=== PATIENT | male | born 1970 | race Caucasian/White ===

== ENCOUNTER 2017-04-30 00:55 | Emergency (ER) | payer SELFPAY ==
[2017-04-30] MEDS ORDERED: traMADol HCl 50 MG TAB ONE (01:19)
--- NOTE | 2017-04-30 07:46 | RAD ---
THREE VIEWS OF THE RIGHT SHOULDER: DATE: 04/30/17. COMPARISON: 11/24/12. HISTORY: Right-sided shoulder pain, fall, recent injury. FINDINGS: There is no widening of the acromioclavicular or coracoclavicular interspace. There is no displaced fracture or evidence of dislocation. IMPRESSION: No acute osseous abnormality. POS: [facility]
== END 2017-04-30 02:11 | disposition home or self-care (01) ==
LOC: ERS 00:55
DX: M25.511 Pain in right shoulder (principal); F41.9 Anxiety disorder, unspecified; F17.210 Nicotine dependence, cigarettes, uncomplicated; Z71.6 Tobacco abuse counseling; Z79.899 Other long term (current) drug therapy; W14.XXXA Fall from tree, initial encounter
CPT/HCPCS: 99406

== ENCOUNTER 2020-06-23 09:44 | Emergency (ER) | payer SELFPAY ==
--- NOTE | 2020-06-23 10:31 | RAD ---
XR Shoulder Lt 3 View STANDARD: 06/23/2020 10:00 AM CLINICAL INDICATION: Left shoulder pain. COMPARISON: January 25, 2019 FINDINGS: Bones: No acute fracture. Glenohumeral joint: Normal alignment. 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 Visualized lung: Clear. Soft tissues: There is stable heterotopic ossification seen posterior to the left humeral head. IMPRESSION: Stable exam. No acute osseous abnormality.
--- NOTE | 2020-06-23 10:32 | RAD ---
XR Hand Rt 3 View STANDARD: 06/23/2020 10:00 AM CLINICAL INDICATION: Right hand pain COMPARISON: None. FINDINGS: Bones: There is stable subchondral cystlike abnormalities involving the lunate. There is stable heal ed deformity involving the distal tuft of the right index finger. Joints: There is scattered osteoarthrosis involving the right hand particularly IP joints. Soft Tissue: Soft tissues are normal appearing. IMPRESSION: No acute osseous abnormality..
--- NOTE | 2020-06-23 10:35 | RAD ---
Left elbow 4 views HISTORY: Injury. FINDINGS: Radiocapitellar alignment is maintained. Moderate osteophytosis throughout the joint space. No acute fracture, dislocation, or fluid distention of the joint capsule. IMPRESSION : No abnormalities are demonstrated.
[2020-06-23] MEDS ORDERED: Acetaminophen 500 MG TAB ONE (11:12)
[2020-06-23] MEDS ORDERED: Bacitracin 1 PK ONE (11:12)
== END 2020-06-23 11:32 | disposition home or self-care (01) ==
LOC: ERS 09:44
DX: S50.312A Abrasion of left elbow, initial encounter (principal); S60.417A Abrasion of left little finger, initial encounter; M25.531 Pain in right wrist; J44.9 Chronic obstructive pulmonary disease, unspecified; F17.200 Nicotine dependence, unspecified, uncomplicated; V03.10XA Pedestrian on foot injured in collision with car, pick-up truck or van in traffic accident, initial encounter; Y92.521 Bus station as the place of occurrence of the external cause

== ENCOUNTER 2020-07-10 10:38 | Emergency (ER) | payer SELFPAY ==
[2020-07-10] MEDS ORDERED: Ibuprofen 800 MG TAB ONE (11:05)
== END 2020-07-10 11:15 | disposition home or self-care (01) ==
LOC: ERS 10:38
DX: S29.011A Strain of muscle and tendon of front wall of thorax, initial encounter (principal); J44.9 Chronic obstructive pulmonary disease, unspecified; F17.200 Nicotine dependence, unspecified, uncomplicated; X58.XXXA Exposure to other specified factors, initial encounter
CPT/HCPCS: 71045

== ENCOUNTER 2020-07-11 22:02 | Inpatient (IN) | payer SELFPAY ==
[~2020-07-11 22:02] MED LIST: Iopamidol 370 76% 100 ML VIAL ONE
[2020-07-11 22:27] LABS: #Basophils 0.2 thou/uL (0.0-0.2); #Eosinphils 0.3 thou/uL (0.0-0.7); #Lymphocytes 3.6 thou/uL (1.20-3.40); #Monocytes 1.2 thou/uL (0.11-0.59); #Neutrophils 14.3 thou/uL (1.40-6.50); %Basophils 0.9 % (0.0-1.0); %Eosinophils 1.5 % (0.0-10.0); %Lymphocytes 18.6 % (21.0-51.0); %Monocytes 6.2 % (0.0-10.0); %Neutrophils 72.9 % (42.0-75.0); Hemoglobin 15.3 g/dL (14.0-18.0); Mean Corpuscular Hemoglobin 27.9 pg (27.0-31.0); Mean Corpuscular Volume 87.2 fL (78.0-98.0); Mean Platelet Volume 7.5 fL (7.4-10.4); Platelet Count 358 thou/uL (130-400); RBC Distribution Width 11.6 % (11.5-14.5); Red Blood Cell (RBC) Count 5.47 mill/uL (4.70-6.10); White Blood Cell (WBC) Count 19.6 thou/uL (4.8-10.8)
[2020-07-11] MEDS ORDERED: Mag-Al 1200 mg/1200 mg/30 ML UDCUP ONE (22:39)
[2020-07-11] MEDS ORDERED: Lidocaine Viscous Sol 2% 15 ml UD Cup ONE (22:39)
[2020-07-11] MEDS ORDERED: Ondansetron PF 4 MG/2 ML Vial ONE (22:44)
[2020-07-11 22:48] LABS: ALT (SGPT) 15 U/L (8-55); AST (SGOT) 14 U/L (5-34); Albumin 4.9 g/dL (3.5-5.0); Alkaline Phosphatase 77 U/L (40-110); Anion Gap 14 mmol/L (10-20); BUN (Urea Nitrogen) 14 mg/dL (8.9-20.6); Bilirubin, Total 0.3 mg/dL (0.2-1.2); Calc. Creatinine Clearance 0 mL/min (70-130); Carbon Dioxide 28 mmol/L (22-29); Chloride 101 mmol/L (98-107); Globulin 3.6 g/dL (2.4-3.5); Glucose 108 mg/dL (70-105); Lipase 17 U/L (8-78); Potassium 4.3 mmol/L (3.5-5.1); Protein, Total 8.5 g/dL (6.0-8.3); Sodium 139 mmol/L (136-145)
[2020-07-11] MEDS ORDERED: Morphine 4 MG/ML VIAL ONE (23:59)
[2020-07-12] MEDS ORDERED: Ondansetron PF 4 MG/2 ML Vial ONE
[2020-07-12] MEDS ORDERED: Morphine 4 MG/ML VIAL ONE (00:54)
[2020-07-12 02:28] VITALS: BMI 23.6
[2020-07-12] MEDS ORDERED: Ondansetron ODT 4 MG TAB SL PRN (02:30)
[2020-07-12] MEDS: Sodium Chloride 0.9% 1,000 ML IV SCH ×3 (02:49→18:15)
[2020-07-12] MEDS ORDERED: Fentanyl 100 MCG/2 ML VIAL SLOW IVP PRN (03:17)
[2020-07-12] MEDS: Ondansetron PF 4 MG/2 ML Vial IVP PRN ×3 (05:48→19:20)
[2020-07-12 06:22] LABS: Bilirubin Negative (Negative); Blood, Urine Negative (Negative); Clarity Clear (Clear); Glucose, Urine (Dipstick) Normal (Negative); Ketone, Urine Negative (Negative); Leukocyte Negative Leu/uL (Negative); Nitrite Negative (Negative); Protein, Urine (Dipstick) 10 mg/dL (Neg-Trace); Urobilinogen Normal mg/dL (Less than 2)
[2020-07-12 06:26] LABS: Specific Gravity, Urine 1.064 (1.002-1.036)
[2020-07-12] MEDS ORDERED: Acetaminophen 325 MG TAB PO PRN (06:35)
[2020-07-12 07:47] LABS: Bacteria/HPF None Seen HPF (None Seen); Bilirubin Negative (Negative); Blood, Urine Negative (Negative); Clarity Clear (Clear); Glucose, Urine (Dipstick) Normal (Negative); Ketone, Urine Negative (Negative); Leukocyte Negative Leu/uL (Negative); Nitrite Negative (Negative); Protein, Urine (Dipstick) 10 mg/dL (Neg-Trace); Squamous Epithelial None Seen HPF (0-3); Urobilinogen Normal mg/dL (Less than 2); WBC/HPF 0-3 HPF (0-3); pH, Urine 8.5 (5.0-9.0)
[2020-07-12 07:49] LABS: Specific Gravity, Urine 1.063 (1.002-1.036)
[2020-07-12 07:51] LABS: Urine Culture Reflex No No
[2020-07-12] MEDS: Morphine 4 MG/ML VIAL SLOW IVP PRN (08:00)
[2020-07-12 11:32] LABS: #Basophils 0.1 thou/uL (0.0-0.2); #Eosinphils 0.2 thou/uL (0.0-0.7); #Lymphocytes 1.6 thou/uL (1.20-3.40); #Monocytes 1.3 thou/uL (0.11-0.59); #Neutrophils 11.1 thou/uL (1.40-6.50); %Basophils 0.7 % (0.0-1.0); %Eosinophils 1.1 % (0.0-10.0); %Lymphocytes 11.4 % (21.0-51.0); %Neutrophils 77.8 % (42.0-75.0); Hemoglobin 15.8 g/dL (14.0-18.0); Mean Corpuscular HGB CONC 32.8 g/dL (32.0-36.0); Mean Corpuscular Hemoglobin 28.7 pg (27.0-31.0); Mean Corpuscular Volume 87.6 fL (78.0-98.0); Mean Platelet Volume 7.8 fL (7.4-10.4); Platelet Count 306 thou/uL (130-400); RBC Distribution Width 11.7 % (11.5-14.5); Red Blood Cell (RBC) Count 5.49 mill/uL (4.70-6.10); White Blood Cell (WBC) Count 14.2 thou/uL (4.8-10.8)
[2020-07-12 12:00] LABS: Anion Gap 16 mmol/L (10-20); BUN (Urea Nitrogen) 12 mg/dL (8.9-20.6); Calc. Creatinine Clearance 103 mL/min (70-130); Carbon Dioxide 20 mmol/L (22-29); Chloride 106 mmol/L (98-107); Glucose 112 mg/dL (70-105); Potassium 4.3 mmol/L (3.5-5.1); Sodium 138 mmol/L (136-145)
[2020-07-12] MEDS: Morphine 10 MG/ML VIAL SLOW IVP PRN ×4 (12:00→20:36)
[2020-07-12] MEDS ORDERED: MD-Gastroview 120 ML BOT ONE (14:25)
[2020-07-12] MEDS: Pantoprazole 40 MG VIAL IVP SCH (14:33)
[2020-07-12] MEDS: Lorazepam 2 MG/ML VIAL SLOW IVP PRN ×2 (14:44→21:32)
[2020-07-12 17:09] LABS: SARS-CoV-2 PCR by NAA Not Detected (NotDetected)
[2020-07-13] MEDS: Sodium Chloride 0.9% 1,000 ML IV SCH ×4 (00:20→21:52)
[2020-07-13] MEDS: Morphine 10 MG/ML VIAL SLOW IVP PRN ×2 (00:20→03:34)
[2020-07-13] MEDS: Ondansetron PF 4 MG/2 ML Vial IVP PRN (03:00)
[2020-07-13] MEDS: Lorazepam 2 MG/ML VIAL SLOW IVP PRN (05:32)
[2020-07-13 06:18] LABS: #Basophils 0.1 thou/uL (0.0-0.2); #Eosinphils 0.2 thou/uL (0.0-0.7); #Lymphocytes 2.3 thou/uL (1.20-3.40); #Monocytes 1.1 thou/uL (0.11-0.59); #Neutrophils 5.6 thou/uL (1.40-6.50); %Basophils 0.7 % (0.0-1.0); %Eosinophils 2.1 % (0.0-10.0); %Lymphocytes 25.3 % (21.0-51.0); %Monocytes 11.8 % (0.0-10.0); %Neutrophils 60.2 % (42.0-75.0); Mean Corpuscular HGB CONC 34.3 g/dL (32.0-36.0); Mean Corpuscular Hemoglobin 30.3 pg (27.0-31.0); Mean Corpuscular Volume 88.4 fL (78.0-98.0); Mean Platelet Volume 7.9 fL (7.4-10.4); Platelet Count 262 thou/uL (130-400); RBC Distribution Width 11.5 % (11.5-14.5); White Blood Cell (WBC) Count 9.3 thou/uL (4.8-10.8)
[2020-07-13 06:19] LABS: Anion Gap 10 mmol/L (10-20); BUN (Urea Nitrogen) 15 mg/dL (8.9-20.6); Calc. Creatinine Clearance 113 mL/min (70-130); Calcium 8.6 mg/dL (7.8-10.44); Carbon Dioxide 25 mmol/L (22-29); Chloride 107 mmol/L (98-107); Glucose 95 mg/dL (70-105); Potassium 3.8 mmol/L (3.5-5.1); Sodium 138 mmol/L (136-145)
[2020-07-13] MEDS ORDERED: Lorazepam 2 MG/ML VIAL SLOW IVP SCH (08:15)
[2020-07-13] MEDS ORDERED: Ondansetron ODT 8 MG TAB PO PRN (12:16)
[2020-07-13] MEDS: Ondansetron ODT 4 MG TAB PO PRN (12:21)
[2020-07-13] MEDS ORDERED: Diazepam 5 MG TAB PO SCH (12:30)
[2020-07-13] MEDS: Pantoprazole 40 MG VIAL IVP SCH (12:39)
[2020-07-13] MEDS ORDERED: HYDROcodone/Acetaminophen 5/325 mg Tablet PO PRN (16:51)
[2020-07-13] MEDS: Diazepam 5 MG TAB PO SCH (21:51)
[2020-07-13] MEDS ORDERED: Lorazepam 0.5 MG TAB PO SCH (22:15)
[2020-07-14 07:21] LABS: Anion Gap 11 mmol/L (10-20); BUN (Urea Nitrogen) 7 mg/dL (8.9-20.6); Calc. Creatinine Clearance 105 mL/min (70-130); Calcium 8.8 mg/dL (7.8-10.44); Carbon Dioxide 27 mmol/L (22-29); Chloride 105 mmol/L (98-107); Glucose 95 mg/dL (70-105); Potassium 3.7 mmol/L (3.5-5.1); Sodium 139 mmol/L (136-145)
[2020-07-14 07:27] LABS: #Basophils 0.1 thou/uL (0.0-0.2); #Eosinphils 0.3 thou/uL (0.0-0.7); #Lymphocytes 2.8 thou/uL (1.20-3.40); #Monocytes 0.8 thou/uL (0.11-0.59); #Neutrophils 3.5 thou/uL (1.40-6.50); %Basophils 0.7 % (0.0-1.0); %Eosinophils 4.2 % (0.0-10.0); %Lymphocytes 37.3 % (21.0-51.0); %Monocytes 10.7 % (0.0-10.0); %Neutrophils 47.1 % (42.0-75.0); Hemoglobin 12.3 g/dL (14.0-18.0); Mean Corpuscular HGB CONC 32.8 g/dL (32.0-36.0); Mean Corpuscular Hemoglobin 28.9 pg (27.0-31.0); Mean Corpuscular Volume 88.1 fL (78.0-98.0); Platelet Count 248 thou/uL (130-400); RBC Distribution Width 11.5 % (11.5-14.5); Red Blood Cell (RBC) Count 4.27 mill/uL (4.70-6.10); White Blood Cell (WBC) Count 7.5 thou/uL (4.8-10.8)
[2020-07-14] MEDS: Sodium Chloride 0.9% 1,000 ML IV SCH ×2 (08:54→09:50)
[2020-07-14] MEDS: Diazepam 5 MG TAB PO SCH (09:59)
[2020-07-14] MEDS: Ondansetron ODT 4 MG TAB PO PRN (10:06)
[2020-07-14] MEDS: Morphine 4 MG/ML VIAL SLOW IVP PRN (11:32)
[2020-07-14] MEDS: Lorazepam 2 MG/ML VIAL SLOW IVP PRN (12:57)
[2020-07-14] MEDS ORDERED: metroNIDAZOLE 500 MG in Premix Bag 1 BAG IVPB SCH (13:45)
[2020-07-14] MEDS ORDERED: Iopamidol-370 76% 500 ML 1 ML ONE (13:57)
[2020-07-14] MEDS ORDERED: Levofloxacin 500 mg/D5W 100 ml Premix Bag ONE (15:20)
[2020-07-14] MEDS: Pantoprazole 40 MG VIAL IVP SCH (15:30)
[2020-07-14] MEDS ORDERED: Fentanyl 250 MCG/5 ML VIAL ONE (16:58)
[2020-07-14] MEDS ORDERED: Dexamethasone 20 MG/5 ML VIAL ONE (17:17)
[2020-07-14] MEDS ORDERED: Lidocaine 1% PF 5 ML VIAL ONE (17:17)
[2020-07-14] MEDS ORDERED: Rocuronium Bromide 10 MG/ML (10ML VIAL) ONE (17:17)
[2020-07-14] MEDS ORDERED: PROPOFOL 200 MG/20 ML VIAL ONE (17:17)
[2020-07-14] MEDS ORDERED: Glycopyrrolate 0.2 MG/ML 5 ML SYRINGE ONE ×2 (17:17→19:09)
[2020-07-14] MEDS ORDERED: Ondansetron PF 4 MG/2 ML Vial ONE (17:17)
[2020-07-14] MEDS ORDERED: Fentanyl 100 MCG/2 ML VIAL ONE ×3 (18:43→19:46)
[2020-07-14] MEDS ORDERED: diphenhydrAMINE 50 MG/ML VIAL IVP PRN (19:18)
[2020-07-14] MEDS ORDERED: Naloxone HCl 0.4 mg/ml Vial IV PRN (19:18)
[2020-07-14] MEDS ORDERED: diphenhydrAMINE 25 MG CAP PO PRN (19:18)
[2020-07-14] MEDS ORDERED: Promethazine HCl 25 MG/ML VIAL IM PRN (19:18)
[2020-07-14] MEDS ORDERED: Zolpidem Tartrate 5 MG TAB PO PRN (19:18)
[2020-07-14] MEDS ORDERED: Ondansetron PF 4 MG/2 ML Vial IVP PRN (19:18)
[2020-07-14] MEDS ORDERED: diphenhydrAMINE 50 MG/ML VIAL IM PRN (19:18)
[2020-07-14] MEDS ORDERED: HYDROmorphone 10 mg/100 ml CADD IVPB PRN (19:18)
[2020-07-14] MEDS ORDERED: HYDROmorphone 0.5 MG/0.5 ML SYRINGE ONE ×2 (19:24→19:31)
[2020-07-14] MEDS ORDERED: Communication Order-Pharmacy FS SCH (19:30)
[2020-07-14] MEDS: Enoxaparin Sodium 40 MG/0.4 ML SYRINGE SC SCH (21:13)
[2020-07-14] MEDS ORDERED: Lorazepam 2 MG/ML VIAL SLOW IVP SCH (22:15)
[2020-07-14] MEDS: Lactated Ringer's 1,000 ML IV SCH (22:23)
[2020-07-15] MEDS: Lactated Ringer's 1,000 ML IV SCH ×3 (06:09→17:11)
[2020-07-15 06:34] LABS: #Neutrophils 9.9 thou/uL (1.40-6.50); %Basophils 0.1 % (0.0-1.0); %Eosinophils 0.1 % (0.0-10.0); %Lymphocytes 8.4 % (21.0-51.0); %Monocytes 8.2 % (0.0-10.0); %Neutrophils 83.2 % (42.0-75.0); Hemoglobin 12.9 g/dL (14.0-18.0); Mean Corpuscular HGB CONC 32.5 g/dL (32.0-36.0); Mean Corpuscular Hemoglobin 28.4 pg (27.0-31.0); Mean Corpuscular Volume 87.5 fL (78.0-98.0); Mean Platelet Volume 8.1 fL (7.4-10.4); Platelet Count 289 thou/uL (130-400); RBC Distribution Width 11.4 % (11.5-14.5); Red Blood Cell (RBC) Count 4.55 mill/uL (4.70-6.10); White Blood Cell (WBC) Count 11.9 thou/uL (4.8-10.8)
[2020-07-15 06:55] LABS: Anion Gap 15 mmol/L (10-20); BUN (Urea Nitrogen) 9 mg/dL (8.9-20.6); Calc. Creatinine Clearance 106 mL/min (70-130); Carbon Dioxide 22 mmol/L (22-29); Chloride 104 mmol/L (98-107); Glucose 111 mg/dL (70-105); Potassium 4.4 mmol/L (3.5-5.1); Sodium 137 mmol/L (136-145)
[2020-07-15] MEDS ORDERED: Lorazepam 2 MG/ML VIAL SLOW IVP PRN (08:34)
[2020-07-15] MEDS: Diazepam 5 MG TAB PO SCH ×3 (09:38→21:00)
[2020-07-15] MEDS: Pantoprazole 40 MG VIAL IVP SCH (14:36)
[2020-07-15] MEDS: Enoxaparin Sodium 40 MG/0.4 ML SYRINGE SC SCH (21:00)
[2020-07-16] MEDS: Lactated Ringer's 1,000 ML IV SCH ×2 (00:19→08:04)
[2020-07-16] MEDS: Diazepam 5 MG TAB PO SCH (08:04)
[2020-07-16 08:19] VITALS: BP 129/78; TEMP 98
[2020-07-16] MEDS ORDERED: Ibuprofen 600 MG TAB PO PRN (08:39)
[2020-07-16] MEDS ORDERED: Diazepam 5 MG TAB PO SCH ×2 (09:00→14:15)
[2020-07-16] MEDS: Acetaminophen 500 MG TAB PO SCH ×2 (09:32→14:19)
[2020-07-16] MEDS: traMADol HCl 50 MG TAB PO PRN ×2 (09:32→14:19)
== END 2020-07-16 14:22 | disposition home or self-care (01) | DRG 337 ==
LOC: ERS 22:02 → T4-B 07-12 00:52
PROVIDERS: ADMIT Internal Medicine; ATTEND Family Medicine
PROC: 0D9670Z Drainage of Stomach with Drainage Device, Via Natural or Artificial Opening (ICD-10-PCS; 2020-07-12)
PROC: 0DN80ZZ Release Small Intestine, Open Approach (ICD-10-PCS; principal; 2020-07-14)
DX: K56.51 Intestinal adhesions [bands], with partial obstruction (principal); J44.9 Chronic obstructive pulmonary disease, unspecified; Z20.822 Contact with and (suspected) exposure to COVID-19; F41.9 Anxiety disorder, unspecified; D72.829 Elevated white blood cell count, unspecified; F10.20 Alcohol dependence, uncomplicated; F19.10 Other psychoactive substance abuse, uncomplicated; Z90.49 Acquired absence of other specified parts of digestive tract; Z87.891 Personal history of nicotine dependence; Z88.1 Allergy status to other antibiotic agents; Z88.5 Allergy status to narcotic agent; Z88.0 Allergy status to penicillin; Z88.8 Allergy status to other drugs, medicaments and biological substances; Z90.2 Acquired absence of lung [part of]; R63.6 Underweight; Z68.23 Body mass index [BMI] 23.0-23.9, adult
CPT/HCPCS: 36415; 74018; 74019; 74177; 74250; 80048; 80053; 81001; 81003; 83690; 85025; 87635; 96374; 96375; 96376; C9113; J1100; J1170; J1650; J1956; J2060; J2270; J2405; J2704; J3010; Q0162; Q9963; Q9967; U0003; U0005

== ENCOUNTER 2020-07-17 18:14 | Inpatient (IN) | payer SELFPAY ==
[~2020-07-17 18:14] MED LIST changes: -Iopamidol 370 76% 100 ML VIAL ONE; +Iopamidol-370 76% 500 ML 1 ML ONE
[2020-07-17 19:16] LABS: #Eosinphils 0.2 thou/uL (0.0-0.7); #Lymphocytes 0.9 thou/uL (1.20-3.40); #Monocytes 0.7 thou/uL (0.11-0.59); #Neutrophils 13.4 thou/uL (1.40-6.50); %Basophils 0.3 % (0.0-1.0); %Eosinophils 1.5 % (0.0-10.0); %Lymphocytes 5.8 % (21.0-51.0); %Monocytes 4.8 % (0.0-10.0); %Neutrophils 87.6 % (42.0-75.0); Hemoglobin 15.1 g/dL (14.0-18.0); Mean Corpuscular HGB CONC 33.2 g/dL (32.0-36.0); Mean Corpuscular Hemoglobin 29.1 pg (27.0-31.0); Mean Corpuscular Volume 87.6 fL (78.0-98.0); Mean Platelet Volume 7.3 fL (7.4-10.4); Platelet Count 282 thou/uL (130-400); RBC Distribution Width 11.3 % (11.5-14.5); Red Blood Cell (RBC) Count 5.17 mill/uL (4.70-6.10); White Blood Cell (WBC) Count 15.3 thou/uL (4.8-10.8)
[2020-07-17] MEDS ORDERED: Ondansetron PF 4 MG/2 ML Vial ONE (19:17)
[2020-07-17] MEDS ORDERED: Morphine 4 MG/ML VIAL ONE ×2 (19:17→20:55)
[2020-07-17 19:37] LABS: ALT (SGPT) 49 U/L (8-55); AST (SGOT) 17 U/L (5-34); Albumin 4.4 g/dL (3.5-5.0); Alkaline Phosphatase 116 U/L (40-110); Anion Gap 16 mmol/L (10-20); BUN (Urea Nitrogen) 8 mg/dL (8.9-20.6); Bilirubin, Total 1.1 mg/dL (0.2-1.2); CK (CPK) 153 U/L (30-200); Calc. Creatinine Clearance 0 mL/min (70-130); Calcium 9.7 mg/dL (7.8-10.44); Carbon Dioxide 25 mmol/L (22-29); Chloride 101 mmol/L (98-107); Glucose 111 mg/dL (70-105); Potassium 3.4 mmol/L (3.5-5.1); Protein, Total 8.4 g/dL (6.0-8.3); Sodium 139 mmol/L (136-145)
[2020-07-17 22:15] LABS: Bilirubin Negative (Negative); Blood, Urine Negative (Negative); Clarity Clear (Clear); Glucose, Urine (Dipstick) Normal (Negative); Ketone, Urine 20 mg/dL (Negative); Leukocyte Negative Leu/uL (Negative); Nitrite Negative (Negative); Protein, Urine (Dipstick) 10 mg/dL (Neg-Trace); Specific Gravity, Urine 1.044 (1.002-1.036); Urobilinogen 12 mg/dL (Less than 2)
[2020-07-17] MEDS ORDERED: Senokot S 8.6-50 MG TAB PO PRN (22:29)
[2020-07-17] MEDS ORDERED: Acetaminophen 325 MG TAB PO PRN (22:29)
[2020-07-17] MEDS ORDERED: Piperacillin/Tazobactam 3.375 GM VIAL ONE (22:30)
[2020-07-17] MEDS ORDERED: Sodium Chloride 0.9% 1,000 ML IV SCH (22:30)
[2020-07-17] MEDS ORDERED: Vancomycin 1 GM in Premix Bag 1 BAG IVPB SCH (23:00)
[2020-07-17] MEDS ORDERED: Sodium Chloride 0.45% 1,000 ML IV SCH (23:15)
[2020-07-17] MEDS: Morphine 4 MG/ML VIAL SLOW IVP PRN (23:16)
[2020-07-17 23:24] VITALS: BMI 23.2
[2020-07-18] MEDS: Nicotine 14 MG PATCH TD SCH ×2 (00:01→23:19)
[2020-07-18] MEDS ORDERED: Morphine 2 MG/ML VIAL SLOW IVP PRN (00:26)
[2020-07-18] MEDS: Morphine 4 MG/ML VIAL SLOW IVP PRN ×7 (03:16→23:59)
[2020-07-18 04:22] LABS: SARS-CoV-2 PCR by NAA Not Detected (NotDetected)
[2020-07-18 06:43] LABS: #Eosinphils 0.3 thou/uL (0.0-0.7); #Lymphocytes 1.4 thou/uL (1.20-3.40); #Neutrophils 10.1 thou/uL (1.40-6.50); %Basophils 0.2 % (0.0-1.0); %Eosinophils 2.2 % (0.0-10.0); %Lymphocytes 10.9 % (21.0-51.0); %Monocytes 7.7 % (0.0-10.0); Hemoglobin 13.6 g/dL (14.0-18.0); Mean Corpuscular HGB CONC 32.8 g/dL (32.0-36.0); Mean Corpuscular Hemoglobin 28.9 pg (27.0-31.0); Mean Corpuscular Volume 88.1 fL (78.0-98.0); Mean Platelet Volume 7.7 fL (7.4-10.4); Platelet Count 258 thou/uL (130-400); RBC Distribution Width 11.4 % (11.5-14.5); White Blood Cell (WBC) Count 12.8 thou/uL (4.8-10.8)
[2020-07-18 07:11] LABS: ALT (SGPT) 48 U/L (8-55); AST (SGOT) 38 U/L (5-34); Albumin 3.5 g/dL (3.5-5.0); Alkaline Phosphatase 126 U/L (40-110); Anion Gap 15 mmol/L (10-20); BUN (Urea Nitrogen) 8 mg/dL (8.9-20.6); Bilirubin, Total 1.4 mg/dL (0.2-1.2); Calc. Creatinine Clearance 108 mL/min (70-130); Calcium 8.4 mg/dL (7.8-10.44); Carbon Dioxide 21 mmol/L (22-29); Chloride 106 mmol/L (98-107); Globulin 3.3 g/dL (2.4-3.5); Glucose 101 mg/dL (70-105); Potassium 3.8 mmol/L (3.5-5.1); Protein, Total 6.8 g/dL (6.0-8.3); Sodium 138 mmol/L (136-145)
[2020-07-18] MEDS: VANCOMYCIN 1.25 GM/250 ML BAG 1.25 GM in Premix Bag 1 BAG IVPB SCH ×2 (08:39→21:31)
[2020-07-18] MEDS: Enoxaparin Sodium 40 MG/0.4 ML SYRINGE SC SCH (08:40)
[2020-07-18] MEDS: Diazepam 5 MG TAB PO SCH ×2 (08:44→21:30)
[2020-07-18] MEDS: Pantoprazole 40 MG VIAL IVP SCH (08:46)
[2020-07-18] MEDS ORDERED: diphenhydrAMINE 25 MG in Sodium Chloride 0.9% 50 ML IVPB PRN (12:00)
[2020-07-18] MEDS: NS 0.9% w/ 40 MEQ KCL 1,000 ML IV SCH ×3 (12:46→21:33)
[2020-07-19] MEDS: Ondansetron PF 4 MG/2 ML Vial IVP PRN (02:24)
[2020-07-19] MEDS: Morphine 4 MG/ML VIAL SLOW IVP PRN ×8 (02:42→23:17)
[2020-07-19] MEDS: NS 0.9% w/ 40 MEQ KCL 1,000 ML IV SCH ×2 (02:43→14:45)
[2020-07-19 06:21] LABS: #Eosinphils 0.4 thou/uL (0.0-0.7); #Lymphocytes 1.1 thou/uL (1.20-3.40); #Monocytes 1.7 thou/uL (0.11-0.59); #Neutrophils 13.7 thou/uL (1.40-6.50); %Eosinophils 2.1 % (0.0-10.0); %Lymphocytes 6.3 % (21.0-51.0); %Monocytes 9.8 % (0.0-10.0); %Neutrophils 81.8 % (42.0-75.0); Hemoglobin 12.5 g/dL (14.0-18.0); Mean Corpuscular HGB CONC 32.6 g/dL (32.0-36.0); Mean Corpuscular Hemoglobin 28.8 pg (27.0-31.0); Mean Corpuscular Volume 88.3 fL (78.0-98.0); Mean Platelet Volume 8.8 fL (7.4-10.4); Platelet Count 255 thou/uL (130-400); RBC Distribution Width 11.4 % (11.5-14.5); Red Blood Cell (RBC) Count 4.35 mill/uL (4.70-6.10); White Blood Cell (WBC) Count 16.8 thou/uL (4.8-10.8)
[2020-07-19 06:52] LABS: ALT (SGPT) 56 U/L (8-55); AST (SGOT) 45 U/L (5-34); Albumin 3.2 g/dL (3.5-5.0); Alkaline Phosphatase 197 U/L (40-110); Anion Gap 14 mmol/L (10-20); BUN (Urea Nitrogen) 8 mg/dL (8.9-20.6); Bilirubin, Total 2.9 mg/dL (0.2-1.2); Calc. Creatinine Clearance 108 mL/min (70-130); Calcium 8.4 mg/dL (7.8-10.44); Carbon Dioxide 22 mmol/L (22-29); Chloride 104 mmol/L (98-107); Globulin 3.7 g/dL (2.4-3.5); Glucose 90 mg/dL (70-105); Lipase 4 U/L (8-78); Potassium 4.8 mmol/L (3.5-5.1); Protein, Total 6.9 g/dL (6.0-8.3); Sodium 135 mmol/L (136-145)
[2020-07-19] MEDS: VANCOMYCIN 1.25 GM/250 ML BAG 1.25 GM in Premix Bag 1 BAG IVPB SCH (08:31)
[2020-07-19 08:38] LABS: Vancomycin, Trough 8.7 ug/mL
[2020-07-19] MEDS: Enoxaparin Sodium 40 MG/0.4 ML SYRINGE SC SCH (09:33)
[2020-07-19] MEDS: Diazepam 5 MG TAB PO SCH ×2 (09:35→20:04)
[2020-07-19] MEDS: Pantoprazole 40 MG VIAL IVP SCH (09:43)
[2020-07-19] MEDS ORDERED: Albuterol Sulfate 2.5 mg/3 ml Neb NEB PRN (16:16)
[2020-07-19] MEDS ORDERED: VANCOMYCIN 1.25 GM/250 ML BAG 1.25 GM in Premix Bag 1 BAG IVPB SCH (17:00)
[2020-07-19] MEDS: MEROPENEM 1 GM/50 ML 1 GM in Premix Bag 1 BAG IVPB SCH ×2 (17:40→23:16)
[2020-07-19] MEDS: Nicotine 14 MG PATCH TD SCH (23:16)
[2020-07-20] MEDS: NS 0.9% w/ 40 MEQ KCL 1,000 ML IV SCH ×2 (00:25→07:48)
[2020-07-20] MEDS: Morphine 4 MG/ML VIAL SLOW IVP PRN ×4 (01:19→14:39)
[2020-07-20] MEDS: Morphine 2 MG/ML VIAL SLOW IVP PRN ×3 (03:59→12:39)
[2020-07-20] MEDS: MEROPENEM 1 GM/50 ML 1 GM in Premix Bag 1 BAG IVPB SCH ×2 (05:52→14:38)
[2020-07-20 06:02] LABS: #Eosinphils 0.2 thou/uL (0.0-0.7); #Lymphocytes 1.2 thou/uL (1.20-3.40); #Neutrophils 7.3 thou/uL (1.40-6.50); %Basophils 0.3 % (0.0-1.0); %Eosinophils 2.3 % (0.0-10.0); %Lymphocytes 12.2 % (21.0-51.0); %Monocytes 10.5 % (0.0-10.0); %Neutrophils 74.7 % (42.0-75.0); Hemoglobin 11.8 g/dL (14.0-18.0); Mean Corpuscular HGB CONC 32.9 g/dL (32.0-36.0); Mean Corpuscular Volume 87.9 fL (78.0-98.0); Mean Platelet Volume 7.9 fL (7.4-10.4); Platelet Count 271 thou/uL (130-400); RBC Distribution Width 11.4 % (11.5-14.5); Red Blood Cell (RBC) Count 4.07 mill/uL (4.70-6.10); White Blood Cell (WBC) Count 9.8 thou/uL (4.8-10.8)
[2020-07-20 06:30] LABS: ALT (SGPT) 36 U/L (8-55); AST (SGOT) 22 U/L (5-34); Acetaminophen Less than 6.0 mcg/mL (10.0-30.0); Albumin 3.1 g/dL (3.5-5.0); Alcohol Less than 10 mg/dL (Less than 10); Alkaline Phosphatase 229 U/L (40-110); Anion Gap 14 mmol/L (10-20); BUN (Urea Nitrogen) 7 mg/dL (8.9-20.6); Bilirubin, Direct 2.3 mg/dL (0.1-0.3); Calc. Creatinine Clearance 125 mL/min (70-130); Calcium 8.5 mg/dL (7.8-10.44); Carbon Dioxide 20 mmol/L (22-29); Chloride 105 mmol/L (98-107); Globulin 3.2 g/dL (2.4-3.5); Glucose 65 mg/dL (70-105); Potassium 4.3 mmol/L (3.5-5.1); Protein, Total 6.3 g/dL (6.0-8.3); Salicylate Less than 8.0 mg/dL (15.0-30.0); Sodium 135 mmol/L (136-145)
[2020-07-20] MEDS: Pantoprazole 40 MG VIAL IVP SCH (07:47)
[2020-07-20] MEDS: Enoxaparin Sodium 40 MG/0.4 ML SYRINGE SC SCH (07:47)
[2020-07-20] MEDS: Diazepam 5 MG TAB PO SCH ×2 (09:30→19:59)
[2020-07-20] MEDS: Ondansetron PF 4 MG/2 ML Vial IVP PRN (12:39)
[2020-07-20] MEDS: traMADol HCl 50 MG TAB PO PRN ×2 (16:41→20:57)
[2020-07-20] MEDS: Acetaminophen 500 MG TAB PO SCH ×2 (18:48→23:35)
[2020-07-20] MEDS: Ibuprofen 600 MG TAB PO PRN (18:52)
[2020-07-20] MEDS: Nicotine 14 MG PATCH TD SCH (23:36)
[2020-07-21] MEDS: traMADol HCl 50 MG TAB PO PRN ×3 (05:16→16:47)
[2020-07-21] MEDS: Acetaminophen 500 MG TAB PO SCH ×3 (05:16→16:50)
[2020-07-21 06:12] LABS: ALT (SGPT) 26 U/L (8-55); AST (SGOT) 13 U/L (5-34); Albumin 3.3 g/dL (3.5-5.0); Alkaline Phosphatase 236 U/L (40-110); Bilirubin, Direct 0.5 mg/dL (0.1-0.3); Bilirubin, Total 0.7 mg/dL (0.2-1.2); Iron 39 ug/dL (65-175); Iron Binding Capacity, Total 206 mcg/dL (261-462); Protein, Total 6.8 g/dL (6.0-8.3)
[2020-07-21 06:28] LABS: Ferritin 408.51 ng/mL (22-322)
[2020-07-21 06:44] LABS: HBCM Index 0.08 S/CO (0-0.79); HBSAg Index 0.22 S/CO (0-0.99); Hep A IgM AB Non-Reactive (NonReactive); Hep B Surf Ag Non-Reactive S/CO (NonReactive); Hep C IgG Ab Non-Reactive (NonReactive); Hep C Index 0.08 S/CO (0-0.79); Hepatitis B Core IgM Abs Non-Reactive (NonReactive)
[2020-07-21] MEDS: Ibuprofen 600 MG TAB PO PRN (09:02)
[2020-07-21] MEDS: Diazepam 5 MG TAB PO SCH (09:04)
[2020-07-21] MEDS: Enoxaparin Sodium 40 MG/0.4 ML SYRINGE SC SCH (09:07)
[2020-07-21 15:20] VITALS: BP 99/70; TEMP 97.8
[2020-07-23 15:37] LABS: ANA Symphony (Qualitative) Negative (Negative); ANA Symphony (Quantitative) 0.3 Ratio (< 0.7 Negative); EliA Vaculitis New Method **** NEW METHOD ****; Mitochondrial Ab 1.2 U/mL (<4 Negative); dsDNA IgG Antibody Less than 0.5 IU/mL (<10 Negative)
== END 2020-07-21 18:44 | disposition home or self-care (01) | DRG 394 ==
LOC: ERS 18:14 → SURG A 21:35
PROVIDERS: ADMIT Student in an Organized Health Care Education/Training Program; ATTEND Internal Medicine
DX: K91.89 Other postprocedural complications and disorders of digestive system (principal); K56.7 Ileus, unspecified; Y84.8 Other medical procedures as the cause of abnormal reaction of the patient, or of later complication, without mention of misadventure at the time of the procedure; Z20.822 Contact with and (suspected) exposure to COVID-19; J44.9 Chronic obstructive pulmonary disease, unspecified; D72.829 Elevated white blood cell count, unspecified; R21 Rash and other nonspecific skin eruption; D63.8 Anemia in other chronic diseases classified elsewhere; F19.10 Other psychoactive substance abuse, uncomplicated; F15.10 Other stimulant abuse, uncomplicated; F10.20 Alcohol dependence, uncomplicated; K71.0 Toxic liver disease with cholestasis; T36.95XA Adverse effect of unspecified systemic antibiotic, initial encounter; R19.7 Diarrhea, unspecified; Z86.14 Personal history of Methicillin resistant Staphylococcus aureus infection; Z90.49 Acquired absence of other specified parts of digestive tract; Z87.891 Personal history of nicotine dependence; Z88.1 Allergy status to other antibiotic agents; Z88.0 Allergy status to penicillin; Z88.8 Allergy status to other drugs, medicaments and biological substances; Z91.09 Other allergy status, other than to drugs and biological substances; Z79.899 Other long term (current) drug therapy
CPT/HCPCS: 36415; 36416; 74018; 74177; 80053; 80074; 80076; 80202; 80307; 81003; 82103; 82248; 82390; 82550; 82728; 83516; 83540; 83550; 83605; 83690; 85025; 86038; 86225; 87040; 87635; 96365; 96366; 96374; 96375; 96376; C9113; J1200; J1650; J1956; J2185; J2270; J2405; J2543; J3370; J3480; Q9967; U0003; U0005